=== PATIENT | male | born 1965 | race Two or more races ===

== ENCOUNTER 2018-09-22 17:16 | Emergency (ER) | payer SELFPAY ==
--- NOTE | 2018-09-22 18:43 | ED PDOC ---
HPI: Psych/Substance Abuse Chief Complaint (Nursing): Alcohol Ingestion Chief Complaint (Provider): Alcohol Ingestion ED Caveat: Intoxicated History Per: Patient History/Exam Limitations: intoxication, language barrier (primarily speaks paraguayan) Current Symptoms Are (Timing): Still Present Associated Symptoms: Anxiety, Agitation, Suicidal Thoughts, Suicidal Plan Additional Complaint(s): John Burroughs is a 53 year old male with no past medical history, who presents to [facility] emergency department by EMS for alcohol intoxication. Patient admits to drinking and also states he tried to hang himself. When asked again, he states that he has not tried and has only thought of doing it. Patient was unsteady on feet and has alcohol induced aggression and agitation. He is requiring medication for agitation at this point for his safety. PMD: no provider Past Medical History Reviewed: Historical Data, Nursing Documentation, Vital Signs Vital Signs: Last Vital Signs Temp 97.9 F 09/22/18 17:20 Pulse 90 09/22/18 17:20 Resp 15 09/22/18 17:20 BP 143/110 H 09/22/18 17:20 Pulse Ox 100 09/22/18 17:20 - Medical History PMH: No Chronic Diseases - Surgical History Surgical History: No Surg Hx - Family History Family History: States: Unknown Family Hx - Allergies Allergies/Adverse Reactions: Allergies Allergy/AdvReac Type Severity Reaction Status Date / Time Penicillins Allergy ANAPHYLAXIS Verified 09/22/18 17:22 Review of Systems ROS Statement: Except As Marked, All Systems Reviewed And Found Negative Psych: Positive for: Anxiety, Suicidal ideation, Other (agitation) Physical Exam - Reviewed Nursing Documentation Reviewed: Yes Vital Signs Reviewed: Yes - Physical Exam Appears: Positive for: Non-toxic, No Acute Distress (clearly intoxicated) Head Exam: Positive for: ATRAUMATIC, NORMOCEPHALIC Skin: Positive for: Normal Color, Warm, Dry Eye Exam: Positive for: Normal appearance, EOMI, PERRL ENT: Positive for: Other (alcohol on breath) Neck: Positive for: Normal, Painless ROM, Supple Cardiovascular/Chest: Positive for: Regular Rate, Rhythm. Negative for: Murmur Respiratory: Positive for: Normal Breath Sounds. Negative for: Respiratory Distress Gastrointestinal/Abdominal: Positive for: Normal Exam, Soft. Negative for: Tenderness Back: Positive for: Normal Inspection. Negative for: L CVA Tenderness, R CVA Tenderness, Vertebral Tenderness Extremity: Positive for: Normal ROM. Negative for: Pedal Edema, Deformity Neurologic/Psych: Positive for: Alert, Other (slurred speech). Negative for: Gait (unable to stand without stumbling) - Laboratory Results Result Diagrams: 09/22/18 21:00 09/22/18 21:00 - ECG O2 Sat by Pulse Oximetry: 100 (RA) Pulse Ox Interpretation: Normal Medical Decision Making Medical Decision Making: Time: 1808 A/P: ETOH with SI requiring medicaiton for alcohol induced aggression, basic labs, 1:1 observation. Will consider crisis if patient remains suicidal when clinically sober. Reassess patient. --alcohol serum --bmp --urine drug screen --CBC with differential --Chest xray --Haldol 5 mg IM --Ativan 2 mg im --1:1 observation Time: 1899 Patient will be signed out to Dr. Dixon, pending sobriety. Scribe Attestation: Documented by Lucius Matias, acting as a scribe for Roslyn Mcdaniel MD. Provider Scribe Attestation: All medical record entries made by the Scribe were at my direction and personally dictated by me. I have reviewed the chart and agree that the record accurately reflects my personal performance of the history, physical exam, medical decision making, and the department course for this patient. I have also personally directed, reviewed, and agree with the discharge instructions and disposition. Disposition - Clinical Impression Clinical Impression: Alcohol use disorder - Disposition Referrals: Alcoholics Anonymous [Outside] Disposition: Transfer of Care Disposition Time: 19:00 Condition: IMPROVED Additional Instructions: FOLLOW UP [facility] [address] [place] [address] Instructions: Alcohol Use - When Is Drinking a Problem?, Alcohol Abuse and Alcoholism (DC) Forms: [employer] (Yi) Print Language: MALTESE
--- NOTE | 2018-09-22 19:34 | ED PDOC ---
- Laboratory Results Result Diagrams: 09/22/18 21:00 09/22/18 21:00 - ECG O2 Sat by Pulse Oximetry: 100 (RA) Pulse Ox Interpretation: Normal Medical Decision Making Medical Decision Making: Time: 1899 --Patient care endorsed by Dr. Mcdaniel, pending clinical sobriety. --430 Patient awake, alert, drinking juice Cleared by crisis with dx: alcohol use disorder by Bertram Mcdowell Steady gait, well appearing upon discharge ----- Scribe Attestation: Documented by Lucius Matias, acting as a scribe for Elie Dixon MD. Provider Scribe Attestation: All medical record entries made by the Scribe were at my direction and personally dictated by me. I have reviewed the chart and agree that the record accurately reflects my personal performance of the history, physical exam, medical decision making, and the department course for this patient. I have also personally directed, reviewed, and agree with the discharge instructions and disposition. Disposition - Clinical Impression Clinical Impression: Alcohol use disorder - POA Present On Arrival: None - Disposition Referrals: Alcoholics Anonymous [Outside] Disposition: Routine/Home Disposition Time: 04:30 Condition: IMPROVED Instructions: Alcohol Use - When Is Drinking a Problem?, Alcohol Abuse and Alcoholism (DC) Forms: [employer] (Yakut) Print Language: SWISS
[2018-09-22 21:25] LABS: BASO % 0.9 % (0.0-2.0); EOS % 1.1 % (0.0-4.0); HEMOGLOBIN 11.9 g/dL (12.0-18.0); LYMPH % 45.7 % (20.0-40.0); MEAN CELL VOLUME 98.6 fl (80.0-94.0); MEAN CORPUSCULAR HEMOGLOBIN 33.4 pg (27.0-31.0); MEAN CORPUSCULAR HGB CONC 33.9 g/dL (33.0-37.0); MEAN PLATELET VOLUME 7.1 fl (7.2-11.7); MONO # 0.4 K/uL (0.0-0.8); MONO % 9.9 % (0.0-10.0); NEUT # 1.8 K/uL (1.8-7.0); NEUT % 42.4 % (50.0-75.0); NRBC % 0.1 % (0.0-0.0); RBC 3.55 Mil/uL (4.40-5.90); RED CELL DISTRIBUTION WIDTH 13.5 % (11.5-14.5); WHITE BLOOD COUNT 4.3 K/uL (4.8-10.8)
[2018-09-22 21:28] LABS: BLOOD UREA NITROGEN 9 mg/dl (9-20); CALCIUM 8.5 mg/dL (8.4-10.2); GFR NON-AFRICAN AMERICAN > 60
[2018-09-22 21:48] LABS: BARBITURATES, UR NEGATIVE (NEGATIVE); BENZODIAZEPINES, UR NEGATIVE (NEGATIVE); OPIATES, UR NEGATIVE (NEGATIVE); PHENCYCLIDINE, UR NEGATIVE (NEGATIVE)
[2018-09-22 22:35] VITALS: TEMP 98.5
[2018-09-23 04:30] VITALS: BP 127/72; PULSE 88; RESP 17
[2018-09-23 05:01] VITALS: O2SAT 100
--- NOTE | 2018-09-23 10:14 | RAD ---
Date of service: 09/22/2018 HISTORY: possible admission COMPARISON: No prior. FINDINGS: LUNGS: The lungs are well inflated and clear. PLEURA: No pleural effusions or pneumothorax. CARDIOVASCULAR: The heart is normal in size. No aortic atherosclerotic calcifications present. OSSEOUS STRUCTURES: Within normal limits for the patient's age. VISUALIZED UPPER ABDOMEN: Normal. OTHER FINDINGS: None. IMPRESSION: No active pulmonary disease.
== END 2018-09-23 04:29 | disposition home or self-care (01) ==
LOC: H.ER 17:16
DX: F10.129 Alcohol abuse with intoxication, unspecified (principal); F41.9 Anxiety disorder, unspecified; Z88.0 Allergy status to penicillin
CPT/HCPCS: 71045; 80048; 82948; 85025; 96372; 99284; G0480; J1630; J2060